=== PATIENT | female | born 1975 | race Caucasian/White ===

== ENCOUNTER → 2023-09-19 | Outpatient (CLI) | payer OTHER, SELFPAY | END | disposition home or self-care (01) | PROVIDERS: Referring Provider Internal Medicine Cardiovascular Disease; Visit Provider Internal Medicine Cardiovascular Disease | DX: I49.9 Cardiac arrhythmia, unspecified (principal); I34.0 Nonrheumatic mitral (valve) insufficiency | CPT/HCPCS: 93225; 93226 ==

== ENCOUNTER → 2023-10-14 | Outpatient (CLI) | payer OTHER, SELFPAY ==
--- NOTE | 2023-10-14 10:07 | ECHOD_ITS ---
Reason For Study: MITRAL VALVE PROLAPSE Procedure This was a 2D Doppler, Color Flow transthoracic echocardiogram. Exam performed in department. Left Ventricle Normal LV size. Left ventricular systolic function is normal. The left ventricular ejection fraction is 60 %. No regional wall motion abnormalities noted. Right Ventricle Normal RV size. Normal systolic function. Atria Normal left atrium. Normal right atrium. Mitral Valve Normal mitral valve. Trivial mitral valve insufficiency. Tricuspid Valve Normal tricuspid valve. Mild (1+) tricuspid valve insufficiency. Pulmonary artery systolic pressure is 24 mmHg. Aortic Valve Normal aortic valve. Trisinus/trileaflet aortic valve. Pulmonic Valve Normal pulmonic valve. Great Vessels Normal aortic root. The pulmonary artery is normal size. Normal inferior vena cava. Pericardium/Pleural No pericardial effusion. MMode/2D Measurements & Calculations LVIDd: 4.7 cm IVSd: 0.77 cm Ao root diam: 3.0 cm LVIDs: 3.2 cm LVPWd: 0.77 cm RVDd: 3.4 cm FS: 33.2 % LAV(MOD-bp): 26.5 ml LVAd ap4: 30.1 cm2 SV(MOD-sp4): 53.3 ml LAV(MOD-bp) Indexed: 14.2 ml/m2 LVLd ap4: 8.2 cm LAV(MOD-sp2): 24.0 ml EDV(MOD-sp4): 90.0 ml LAV(MOD-sp4): 28.8 ml EDV(sp4-el): 94.0 ml LVAs ap4: 17.3 cm2 LVLs ap4: 6.8 cm ESV(MOD-sp4): 36.7 ml ESV(sp4-el): 37.2 ml EF(MOD-sp4): 59.2 % EF(sp4-el): 60.4 % SV(sp4-el): 56.8 ml LA A4 area: 12.9 cm2 LA dimension(2D): 2.9 cm RA A4 area: 12.7 cm2 TAPSE: 2.0 cm Time Measurements MV dec time: 0.19 sec Doppler Measurements & Calculations MV E max ignacio: 70.5 cm/sec Lat Peak E' Ignacio: 15.9 cm/sec Med Peak E' Ignacio: 10.7 cm/sec MV A max ignacio: 56.0 cm/sec E/E' lat: 4.4 E/E' med: 6.6 MV E/A: 1.3 Ao V2 max: 103.9 cm/sec LV V1 max: 92.1 cm/sec PA V2 max: 78.6 cm/sec Ao max P.3 mmHg LV V1 max P.4 mmHg TR max ignacio: 227.3 cm/sec TR max P.7 mmHg ECHO/Echo Complete Interpretation Summary Normal LV size. Left ventricular systolic function is normal. The left ventricular ejection fraction is 60 %. Normal mitral valve. Pulmonary artery systolic pressure is 24 mmHg. Ordering Physician: Archie Beck Referring Physician: Archie Beck Performed By: Chanelle Payan RDCS
== END | disposition home or self-care (01) ==
LOC: CVS 10:05
PROVIDERS: Referring Provider Internal Medicine Cardiovascular Disease; Visit Provider Internal Medicine Cardiovascular Disease
DX: I34.0 Nonrheumatic mitral (valve) insufficiency (principal)
CPT/HCPCS: 93306